=== PATIENT | female | born 1995 | race African-American/Black ===

== ENCOUNTER 2023-01-18 00:08 | Emergency (ER) | payer MEDICAID ==
[~2023-01-18] VITALS: Ht 175.3 cm; Wt 37.6 kg
[2023-01-18 00:27] VITALS: BP 105/65
--- NOTE | 2023-01-18 00:41 | NUR ---
TO [facility] FOLLOWING TRIAGE
--- NOTE | 2023-01-18 01:11 | NUR ---
PT TO BED 8
--- NOTE | 2023-01-18 01:18 | NUR ---
Dr. Dean examining patient.
--- NOTE | 2023-01-18 01:20 | NUR ---
27 Y/O F presents with headache 5/10 pain pt stated it feels like pressure and is intermittent x2 weeks. pt is A&Ox4, skin intact, ambulatory, respirations even and unlabored. PMH-pt denies NKA
[2023-01-18] MEDS ORDERED: IBUP-2213 PO (01:38)
[2023-01-18] MEDS ORDERED: ACET-10509 PO (01:38)
--- NOTE | 2023-01-18 01:51 | NUR ---
Patient discharged with v/s stable. Written and verbal after care instructions given and explained. Patient alert, oriented and verbalized understanding of instructions. Ambulatory with steady gait. All questions addressed prior to discharge. ID band removed. Patient advised to follow up with PMD. Rx of Ibuprofen and Tylenol given. Patient educated on indication of medication including possible reaction and side effects. Opportunity to ask questions provided and answered.
--- NOTE | 2023-01-18 01:52 | NUR ---
The patient's care was reviewed and supervised by Prabha Multani RN.
== END 2023-01-18 01:51 | disposition home or self-care (01) ==
LOC: MED 00:08
DX: R51.9 Headache, unspecified (principal); Z79.899 Other long term (current) drug therapy; Z79.1 Long term (current) use of non-steroidal anti-inflammatories (NSAID)
CPT/HCPCS: 81025; 99282